=== PATIENT | male | born 1975 | race Caucasian/White ===

== ENCOUNTER 2021-06-13 02:58 | Emergency (ER) | payer MEDICAID ==
[~2021-06-13] VITALS: Ht 162.6 cm; Wt 80.7 kg
--- NOTE | 2021-06-13 03:15 | NUR ---
TO ER BED 4. BIBSELF C/O UPPER ABD PAIN AND N/V SINCE YESTERDAY. NOT RELIEVED BY MEDS, WORSE WHEN CHANGING POSITIONS. PAIN 10/10 ON P/S. PT DENIES ANY CHEST PAIN. NOT IN RESPIRATORY DISTRESS. CHANGED INTO GOWN. CONNCTED TO MONITOR. AWAITLEISA HUNTER
[2021-06-13] MEDS ORDERED: ONDANSETRON HCL/PF 4 MG/2 ML VIAL ONE (03:26)
[2021-06-13] MEDS ORDERED: MORPHINE SULFATE INJ 4 MG/ML DISP.SYRIN ONE (03:26)
[2021-06-13] MEDS ORDERED: MORPHINE SULFATE INJ 2 MG/ML DISP.SYRIN IV ONE (03:30)
[2021-06-13] MEDS ORDERED: ONDANSETRON HCL/PF 4 MG/2 ML VIAL IVP ONE (03:30)
[2021-06-13] MEDS ORDERED: IV NS 0.9% 1,000 ML BAG IV ONE (03:30)
--- NOTE | 2021-06-13 03:33 | NUR ---
LAC #18G S/L; PATENT AND INTACT. BLOOD COLLECTED AND SENT TO LAB
[2021-06-13 03:40] LABS: BASOPHILS % (AUTO) 0.5 % (0.0-2.0); HEMATOCRIT 44 % (39-51); HEMOGLOBIN 15.2 g/dL (13.5-17.5); LYMPHOCYTES % (AUTO) 33.3 % (20.0-44.0); MEAN CORPUSCULAR HGB CONC 34 g/dl (31.0-36.0); MEAN CORPUSCULAR VOLUME 88 fL (80-96); MONOCYTES # (AUTO) 0.6 K/uL (0.1-1.30); MONOCYTES % (AUTO) 9.9 % (2.0-12.0); NEUTROPHILS # (AUTO) 3.2 K/uL (1.8-8.9); NEUTROPHILS % (AUTO) 53.3 % (43.0-81.0); PLATELET COUNT (AUTO) 219 K/uL (150-450); RED BLOOD CELL COUNT(AUTO) 5.06 MIL/uL (4.5-6.0); WHITE BLOOD COUNT (AUTO) 6.1 K/uL (4.3-11.0)
[2021-06-13 03:59] LABS: CREATININE 0.8 mg/dL (0.6-1.3); POTASSIUM 3.9 mmol/L (3.5-5.1)
[2021-06-13 04:04] LABS: ALBUMIN 3.6 g/dL (3.4-5.0); BILIRUBIN,DIRECT 0.1 mg/dL (0.0-0.2); BILIRUBIN,TOTAL 0.3 mg/dL (0.2-1.0); TOTAL PROTEIN, SERUM 7.3 g/dL (6.4-8.2)
[2021-06-13] MEDS ORDERED: IV NS 0.9% 250 ML IV ONE (04:14)
[2021-06-13] MEDS ORDERED: IOHEXOL-300 100 ML VIAL IV ONE (04:14)
--- NOTE | 2021-06-13 04:20 | NUR ---
PT STATES PAIN IS NOT RELIEVED BY MORPHINE, PAIN IS 8/10 ON P/S. MADE MD AWARE
[2021-06-13] MEDS ORDERED: LIDOCAINE VISCOUS 2% UD 15 ML UDC ONE (04:27)
[2021-06-13] MEDS ORDERED: MAG HYDROX/AL HYDROX/SIMETH 30 ML UDC ONE (04:27)
[2021-06-13] MEDS ORDERED: MAG HYDROX/AL HYDROX/SIMETH 30 ML UDC PO ONE (04:30)
[2021-06-13] MEDS ORDERED: LIDOCAINE VISCOUS 2% UD 15 ML UDC MM ONE (04:30)
--- NOTE | 2021-06-13 04:41 | NUR ---
PT TAKEN FOR CT SCAN
[2021-06-13] MEDS ORDERED: OMEP20CA15 PO (05:54)
[2021-06-13] MEDS ORDERED: ONDA4TAB5 PO (05:54)
[2021-06-13] MEDS ORDERED: KETOROLAC TROMETHAMINE INJ 30 MG/ML VIAL IV ONE (06:00)
[2021-06-13] MEDS ORDERED: KETOROLAC TROMETHAMINE 15 MG/ML VIAL ONE (06:05)
--- NOTE | 2021-06-13 06:07 | NUR ---
IV removed. Catheter intact and site benign. Pressure and 4x4 applied to site. No bleeding noted.
[2021-06-13 06:08] VITALS: BP 128/47
--- NOTE | 2021-06-13 06:08 | NUR ---
Patient discharged to home in stable condition. Written and verbal after care instructions given. Patient verbalizes understanding of instruction.
== END 2021-06-13 06:08 | disposition home or self-care (01) ==
LOC: ER 03:00
DX: R10.13 Epigastric pain (principal); R10.11 Right upper quadrant pain; R11.2 Nausea with vomiting, unspecified; Z87.19 Personal history of other diseases of the digestive system
CPT/HCPCS: 36415; 74177; 76705; 80048; 80076; 83690; 85025; 96361; 96374; 96375; 99285; J2270; J2405; J7030; J7050; Q9967; J1885